=== PATIENT | female | born 1945 | race Caucasian/White ===

== ENCOUNTER 2020-06-24 19:54 | Emergency (ER) | payer MEDICARE, OTHER ==
[2020-06-24 21:54] LABS: BASOPHIL 0 % (0-2); EOSINOPHIL 0 % (0-7); HCT 28.5 % (37.0-47.0); HGB 9.4 g/dl (12.5-16.0); LYMPHOCYTE 5.2 % (15-48); MCH 30.1 pg (25.0-31.0); MCV 91.3 fL (78.0-100.0); MONOCYTE 0.5 % (0-12); MPV 9.8 fL (6.0-9.5); NEUTROPHIL 93.7 % (41-80); NRBC 0; PLT 130 K/uL (150-400); RBC 3.12 M/uL (4.20-5.40); RDW 19.9 % (11.5-14.0)
[2020-06-24 21:55] LABS: WBC 8.3 K/uL (4.0-10.5)
[2020-06-24 22:08] LABS: ALBUMIN 2.8 g/dL (3.4-5.0); BILIRUBIN - TOTAL 0.8 mg/dL (0.2-1.0); BUN/CREAT RATIO (CALC) 31.6 RATIO; CREATININE 0.57 mg/dL (0.51-0.95); GLOBULIN (CALCULATION) 3.7 g/dL; POTASSIUM 4.1 mmol/L (3.5-5.1); TOTAL PROTEIN 6.5 g/dL (6.4-8.2)
[2020-06-24 22:19] LABS: INR 1.22 (0.9-1.2); PROTHROMBIN TIME 14.6 SECONDS (11.4-13.6)
[2020-06-24 22:24] LABS: PTT 28.8 SECONDS (22.2-34.7)
[2020-06-25] MEDS ORDERED: PEPCID AC20 MG PO (02:05)
== END 2020-06-25 02:41 | disposition home or self-care (01) ==
LOC: FER 19:54
PROVIDERS: Emergency Medicine
DX: R10.13 Epigastric pain (principal); R11.0 Nausea; I48.91 Unspecified atrial fibrillation; J90 Pleural effusion, not elsewhere classified; I25.2 Old myocardial infarction; I11.0 Hypertensive heart disease with heart failure; I50.9 Heart failure, unspecified; Z95.0 Presence of cardiac pacemaker; Z88.1 Allergy status to other antibiotic agents; Z88.5 Allergy status to narcotic agent; Z88.8 Allergy status to other drugs, medicaments and biological substances; Z91.041 Radiographic dye allergy status; Z79.82 Long term (current) use of aspirin; Z79.899 Other long term (current) drug therapy; Z79.01 Long term (current) use of anticoagulants
CPT/HCPCS: 36415; 71045; 80053; 84484; 85025; 85610; 85730; 93005; J0780; J1200

== ENCOUNTER 2020-08-19 12:29 | Inpatient (IN) | payer MEDICARE, OTHER ==
[~2020-08-19] VITALS: Ht 149.9 cm; Wt 37.8 kg
[~2020-08-19 12:29] MED LIST: PEPCID AC20 MG PO
[2020-08-19 13:12] LABS: BASOPHIL 0.3 % (0-2); EOSINOPHIL 0 % (0-7); HCT 24.6 % (37.0-47.0); HGB 7.9 g/dl (12.5-16.0); MCH 32.4 pg (25.0-31.0); MCHC 32.1 g/dL (32.0-36.0); MCV 100.8 fL (78.0-100.0); MONOCYTE 3.2 % (0-12); MPV 9.6 fL (6.0-9.5); NEUTROPHIL 76.2 % (41-80); NRBC 0; PLT 93 K/uL (150-400); RBC 2.44 M/uL (4.20-5.40); RDW 17.4 % (11.5-14.0)
[2020-08-19 13:20] LABS: WBC 3.7 K/uL (4.0-10.5)
[2020-08-19 13:22] LABS: LACTIC ACID 1.8 mmol/L (0.4-1.9); PRO-BNP 4485 pg/mL (<125)
[2020-08-19 14:14] LABS: ALBUMIN 2.5 g/dL (3.4-5.0); BILIRUBIN - TOTAL 1.1 mg/dL (0.2-1.0); BUN/CREAT RATIO (CALC) 27.2 RATIO; CREATININE 0.81 mg/dL (0.51-0.95); GLOBULIN (CALCULATION) 3.8 g/dL; TOTAL PROTEIN 6.3 g/dL (6.4-8.2)
[2020-08-20 06:01] LABS: BASOPHIL 0 % (0-2); EOSINOPHIL 0 % (0-7); HCT 28.1 % (37.0-47.0); HGB 8.7 g/dl (12.5-16.0); LYMPHOCYTE 19.1 % (15-48); MCH 32.3 pg (25.0-31.0); MCV 104.5 fL (78.0-100.0); MPV 9.6 fL (6.0-9.5); NRBC 0; PLT 84 K/uL (150-400); RBC 2.69 M/uL (4.20-5.40); RDW 17.2 % (11.5-14.0); WBC 2.5 K/uL (4.0-10.5)
[2020-08-20 06:25] LABS: ALBUMIN 2.2 g/dL (3.4-5.0); BILIRUBIN - TOTAL 0.5 mg/dL (0.2-1.0); BUN/CREAT RATIO (CALC) 29.4 RATIO; CREATININE 0.68 mg/dL (0.51-0.95); GLOBULIN (CALCULATION) 4.7 g/dL; POTASSIUM 4.5 mmol/L (3.5-5.1); TOTAL PROTEIN 6.9 g/dL (6.4-8.2)
--- NOTE | 2020-08-20 16:13 | NUR ---
08/20/20 Ms. Ng lives at home with her spouse. Patient is current with [facility] . A referral was made to [facility] to include PT. A referral was made to [facility] to provide a rw. Please call [facility] if patient is discharged over the weekend, .
[2020-08-21 04:16] LABS: BASOPHIL 0 % (0-2); EOSINOPHIL 0 % (0-7); HCT 21.9 % (37.0-47.0); HGB 6.8 g/dl (12.5-16.0); LYMPHOCYTE 12.9 % (15-48); MCH 31.8 pg (25.0-31.0); MCHC 31.1 g/dL (32.0-36.0); MCV 102.3 fL (78.0-100.0); MONOCYTE 5.8 % (0-12); MPV 10.1 fL (6.0-9.5); NRBC 0; RBC 2.14 M/uL (4.20-5.40); WBC 3.8 K/uL (4.0-10.5)
[2020-08-21 04:26] LABS: NEUTROPHIL 78.1 % (41-80); PLT 58 K/uL (150-400)
[2020-08-21 04:41] LABS: CREATININE 0.69 mg/dL (0.51-0.95); POTASSIUM 4.4 mmol/L (3.5-5.1)
--- NOTE | 2020-08-21 06:17 | NUR ---
0527 hgb 6.8, hct 21.9, and platelets [address] Antonio
[2020-08-22 04:06] LABS: BASOPHIL 0 % (0-2); EOSINOPHIL 0 % (0-7); HCT 25.1 % (37.0-47.0); HGB 8.5 g/dl (12.5-16.0); LYMPHOCYTE 24.9 % (15-48); MCH 32.9 pg (25.0-31.0); MCHC 33.9 g/dL (32.0-36.0); MONOCYTE 8.7 % (0-12); MPV 10.7 fL (6.0-9.5); NRBC 0; RBC 2.58 M/uL (4.20-5.40); WBC 4.6 K/uL (4.0-10.5)
[2020-08-22 04:08] LABS: MCV 97.3 fL (78.0-100.0); NEUTROPHIL 64.4 % (41-80); PLT 42 K/uL (150-400)
[2020-08-22 04:26] LABS: BUN/CREAT RATIO (CALC) 24.6 RATIO; CREATININE 0.65 mg/dL (0.51-0.95); POTASSIUM 4.2 mmol/L (3.5-5.1)
[2020-08-24 05:47] LABS: HCT 25.2 % (37.0-47.0); HGB 8.3 g/dl (12.5-16.0); MCH 32.7 pg (25.0-31.0); MCHC 32.9 g/dL (32.0-36.0); MCV 99.2 fL (78.0-100.0); RBC 2.54 M/uL (4.20-5.40); RDW 16.9 % (11.5-14.0); WBC 4.3 K/uL (4.0-10.5)
[2020-08-24 07:51] LABS: CREATININE 0.74 mg/dL (0.51-0.95); POTASSIUM 3.5 mmol/L (3.5-5.1)
[2020-08-25 05:42] LABS: HCT 24.6 % (37.0-47.0); HGB 8.2 g/dl (12.5-16.0); MCH 32.9 pg (25.0-31.0); MCHC 33.3 g/dL (32.0-36.0); MCV 98.8 fL (78.0-100.0); MPV 11.6 fL (6.0-9.5); RBC 2.49 M/uL (4.20-5.40); RDW 16.8 % (11.5-14.0); WBC 4.1 K/uL (4.0-10.5)
[2020-08-25 06:09] LABS: BUN/CREAT RATIO (CALC) 9.2 RATIO; CREATININE 0.65 mg/dL (0.51-0.95); POTASSIUM 3.7 mmol/L (3.5-5.1)
--- NOTE | 2020-08-25 10:40 | NUR ---
08/25/20 IV infusion has been arranged by [facility] through [facility]. The infusion will start on 08/26/20. Ms. Ng has been made aware of her cost. She has agreed to pay the $398.78 co-pay. - A report was given to MS SHEREEN Hayes.
[2020-08-25] MEDS ORDERED: LOPRESSOR25 MG PO (11:13)
[2020-08-25] MEDS ORDERED: SYNTHROID25 MCG PO (11:13)
[2020-08-25] MEDS ORDERED: XARELTO15 MG PO (11:13)
[2020-08-25] MEDS ORDERED: CARDIZEM30 MG PO (11:13)
== END 2020-08-25 13:15 | disposition home health service (06) | DRG 871 ==
LOC: FER 12:29 → FMS 17:19
PROVIDERS: Hospitalist; Internal Medicine; ADMIT Allergy & Immunology Allergy
PROC: 30233N1 Transfusion of Nonautologous Red Blood Cells into Peripheral Vein, Percutaneous Approach (ICD-10-PCS; principal; 2020-08-21)
DX: A40.8 Other streptococcal sepsis (principal); J18.9 Pneumonia, unspecified organism; D61.810 Antineoplastic chemotherapy induced pancytopenia; D84.9 Immunodeficiency, unspecified; J90 Pleural effusion, not elsewhere classified; C34.90 Malignant neoplasm of unspecified part of unspecified bronchus or lung; D68.9 Coagulation defect, unspecified; T45.1X5A Adverse effect of antineoplastic and immunosuppressive drugs, initial encounter; E11.9 Type 2 diabetes mellitus without complications; I48.91 Unspecified atrial fibrillation; Z66 Do not resuscitate; Z20.822 Contact with and (suspected) exposure to COVID-19; E78.00 Pure hypercholesterolemia, unspecified; J45.909 Unspecified asthma, uncomplicated; E55.9 Vitamin D deficiency, unspecified; I95.9 Hypotension, unspecified; Z98.890 Other specified postprocedural states; Z95.5 Presence of coronary angioplasty implant and graft; Z90.49 Acquired absence of other specified parts of digestive tract; Z88.5 Allergy status to narcotic agent; Z88.1 Allergy status to other antibiotic agents; Z91.041 Radiographic dye allergy status; Z88.8 Allergy status to other drugs, medicaments and biological substances; Z95.810 Presence of automatic (implantable) cardiac defibrillator; I25.2 Old myocardial infarction
CPT/HCPCS: 36415; 36430; 71045; 71250; 80048; 80053; 80202; 83605; 83880; 84145; 84484; 85025; 85379; 86850; 86900; 86901; 86922; 87040; 87077; 87186; 93005; 97162; 97166; 97530-GP; 97535; J2543; J2930; J3370; J3475; J7030; J7050; J7120; P9016; P9035; U0002

== ENCOUNTER → 2021-04-27 | Day surgery (SDC) | payer MEDICARE, OTHER ==
[~2021-04-27] VITALS: Ht 149.9 cm; Wt 34.2 kg
[~2021-04-27] MED LIST changes: +AMIODARONE HCL200 MG PO; +AMLODIPINE BES2.5 MG PO; +ASPIRIN EC81 MG PO; +CARDIZEM30 MG PO; +CRESTOR20 MG PO; +ELIQUIS5 MG PO; +FOLIC ACID PO; +IRON PO; +LASIX20 MG PO; +LOPRESSOR25 MG PO; +ONDANSETRON ODT4 MG PO; +PANTOPRAZOLE PO; +POTASSIUM PO; +SINGULAIR10 MG PO; +SYNTHROID25 MCG PO; +TRANSDERM-SCOP1 EACH TD; +ULTRAM50 MG PO; +VIT C PO; +VIT D PO; +XARELTO15 MG PO; +ZINC50 M2 PO
[2021-04-27 11:00] LABS: INR 1.16 (0.9-1.2); PROTHROMBIN TIME 14.2 SECONDS (11.8-13.4)
[2021-04-27 11:01] LABS: PTT 31.5 SECONDS (24.4-34.7)
== END | disposition home or self-care (01) ==
LOC: FAS 08:56
PROVIDERS: Student in an Organized Health Care Education/Training Program
DX: C34.92 Malignant neoplasm of unspecified part of left bronchus or lung (principal); J91.0 Malignant pleural effusion; I10 Essential (primary) hypertension; I25.2 Old myocardial infarction; J45.909 Unspecified asthma, uncomplicated; E03.9 Hypothyroidism, unspecified; Z95.0 Presence of cardiac pacemaker; Z95.5 Presence of coronary angioplasty implant and graft; Z88.5 Allergy status to narcotic agent; Z88.1 Allergy status to other antibiotic agents; Z88.8 Allergy status to other drugs, medicaments and biological substances; Z79.01 Long term (current) use of anticoagulants; Z79.82 Long term (current) use of aspirin; Z79.899 Other long term (current) drug therapy; Z90.49 Acquired absence of other specified parts of digestive tract; Z82.49 Family history of ischemic heart disease and other diseases of the circulatory system
CPT/HCPCS: 36415; 71045; 76000; 85610; 85730; C1788; J0690; J1644; J2250; J2405; J2704; J3010; J7120

== ENCOUNTER 2021-06-29 14:20 | Inpatient (IN) | payer MEDICARE, OTHER ==
[~2021-06-29] VITALS: Ht 149.9 cm; Wt 32.3 kg
[2021-06-29 15:25] LABS: FT4 (FREE T4) 1.7 ng/dL (0.76-1.46); MAGNESIUM 1.5 mg/dL (1.8-2.4)
[2021-06-29 15:43] LABS: CORONAVIRUS 2019 SARS-COV-2 NEGATIVE (NEGATIVE); INFLUENZA A NAA NEGATIVE (NEGATIVE)
[2021-06-29 15:51] LABS: INR 1.64 (0.9-1.2); PROTHROMBIN TIME 18.7 SECONDS (11.8-13.4); PTT 36.5 SECONDS (24.4-34.7)
[2021-06-29 16:16] LABS: LACTIC ACID 4.3 mmol/L (0.4-1.9)
[2021-06-30 06:28] LABS: BASOPHIL 0.1 % (0-2); EOSINOPHIL 0 % (0-7); HCT 28.6 % (37.0-47.0); HGB 9.2 g/dl (12.5-16.0); LYMPHOCYTE 1.8 % (15-48); MCHC 32.2 g/dL (32.0-36.0); MCV 102.5 fL (78.0-100.0); MONOCYTE 3.3 % (0-12); MPV 10.9 fL (6.0-9.5); NEUTROPHIL 93.9 % (41-80); NRBC 0; RBC 2.79 M/uL (4.20-5.40); RDW 18.1 % (11.5-14.0)
[2021-06-30 07:06] LABS: BUN 22 mg/dL (7-18); BUN/CREAT RATIO (CALC) 26.2 RATIO; CHLORIDE 105 mmol/L (98-107); CHOLESTEROL 115 mg/dL (<200); CO2 (BICARBONATE) 24 mmol/L (21-32); CREATININE 0.84 mg/dL (0.51-0.95); GLUCOSE 132 mg/dL (74-106); HDL 16 mg/dL (40-60); LDL - DIRECT 63 mg/dL (<100); MAGNESIUM 1.5 mg/dL (1.8-2.4); TRIGLYCERIDES 135 mg/dL (<150)
[2021-06-30 07:43] LABS: C-REACTIVE PROTEIN > 18.00 mg/dL (<=0.90)
[2021-06-30 07:54] LABS: WBC 13.7 K/uL (4.0-10.5)
[2021-06-30 08:01] LABS: PLT 96 K/uL (150-400)
[2021-06-30 18:24] LABS: BILIRUBIN NEGATIVE (NEGATIVE); BLOOD 3+ Ery/uL (NEGATIVE); COLOR YELLOW (YELLOW); GLUCOSE (U) NORMAL (NORMAL); LEUKOCYTES NEGATIVE Leu/uL (NEGATIVE); NITRITE NEGATIVE (NEGATIVE); PROTEIN TRACE (LOW) mg/dL (NEGATIVE); SPECIFIC GRAVITY >=1.030 (1.001-1.030); UROBILINOGEN 0.2 mg/dL (0.2-1.0); pH 5.5 (5.0-9.0)
[2021-06-30 18:41] LABS: CLARITY SLIGHTLY HAZY (CLEAR)
[2021-06-30 18:45] LABS: URINARY RBC 20-50
[2021-06-30 18:47] LABS: BACTERIA 2+; MUCOUS TRACE; URIC ACID CRYSTALS MODERATE
[2021-07-01 06:04] LABS: BASOPHIL 0.1 % (0-2); EOSINOPHIL 0 % (0-7); HCT 30.7 % (37.0-47.0); HGB 9.9 g/dl (12.5-16.0); LYMPHOCYTE 1.2 % (15-48); MCH 33.6 pg (25.0-31.0); MCHC 32.2 g/dL (32.0-36.0); MCV 104.1 fL (78.0-100.0); MONOCYTE 2.8 % (0-12); MPV 10.3 fL (6.0-9.5); NRBC 0; PLT 102 K/uL (150-400); RBC 2.95 M/uL (4.20-5.40); RDW 18.4 % (11.5-14.0); WBC 15.2 K/uL (4.0-10.5)
[2021-07-01 06:09] LABS: NEUTROPHIL 94.8 % (41-80)
[2021-07-01 06:15] LABS: BUN/CREAT RATIO (CALC) 25.6 RATIO; CREATININE 0.82 mg/dL (0.51-0.95); POTASSIUM 3.6 mmol/L (3.5-5.1)
[2021-07-02 06:22] LABS: BASOPHIL 0.1 % (0-2); EOSINOPHIL 0.1 % (0-7); HCT 32.1 % (37.0-47.0); HGB 10.2 g/dl (12.5-16.0); LYMPHOCYTE 1.5 % (15-48); MCH 33.2 pg (25.0-31.0); MCHC 31.8 g/dL (32.0-36.0); MCV 104.6 fL (78.0-100.0); MONOCYTE 2.1 % (0-12); MPV 10.6 fL (6.0-9.5); NRBC 0; PLT 106 K/uL (150-400); RBC 3.07 M/uL (4.20-5.40); RDW 18.2 % (11.5-14.0); WBC 14.6 K/uL (4.0-10.5)
[2021-07-02 06:28] LABS: NEUTROPHIL 95.7 % (41-80)
[2021-07-02 06:44] LABS: BUN/CREAT RATIO (CALC) 27.3 RATIO; CREATININE 0.77 mg/dL (0.51-0.95); POTASSIUM 3.2 mmol/L (3.5-5.1)
[2021-07-03 06:36] LABS: BUN/CREAT RATIO (CALC) 22.8 RATIO; CREATININE 0.79 mg/dL (0.51-0.95); POTASSIUM 3.3 mmol/L (3.5-5.1)
[2021-07-04 05:54] LABS: BASOPHIL 0.1 % (0-2); EOSINOPHIL 0 % (0-7); HCT 31.5 % (37.0-47.0); HGB 9.9 g/dl (12.5-16.0); LYMPHOCYTE 1.4 % (15-48); MCH 32.2 pg (25.0-31.0); MCHC 31.4 g/dL (32.0-36.0); MCV 102.6 fL (78.0-100.0); MONOCYTE 0.9 % (0-12); MPV 10.8 fL (6.0-9.5); NRBC 0; PLT 125 K/uL (150-400); RBC 3.07 M/uL (4.20-5.40)
[2021-07-04 06:00] LABS: WBC 14.1 K/uL (4.0-10.5)
[2021-07-04 06:16] LABS: BUN/CREAT RATIO (CALC) 23.5 RATIO; CREATININE 0.81 mg/dL (0.51-0.95); MAGNESIUM 1.5 mg/dL (1.8-2.4); POTASSIUM 3.7 mmol/L (3.5-5.1)
[2021-07-05 03:39] LABS: BASOPHIL 0.1 % (0-2); EOSINOPHIL 0 % (0-7); HCT 33.2 % (37.0-47.0); HGB 10.5 g/dl (12.5-16.0); LYMPHOCYTE 1.3 % (15-48); MCH 32.3 pg (25.0-31.0); MCHC 31.6 g/dL (32.0-36.0); MCV 102.2 fL (78.0-100.0); MONOCYTE 1.8 % (0-12); MPV 9.5 fL (6.0-9.5); NRBC 0; PLT 132 K/uL (150-400); RBC 3.25 M/uL (4.20-5.40); RDW 17.6 % (11.5-14.0); WBC 13.7 K/uL (4.0-10.5)
[2021-07-05 03:41] LABS: NEUTROPHIL 95.8 % (41-80)
[2021-07-05 03:57] LABS: BUN/CREAT RATIO (CALC) 27.5 RATIO; CREATININE 0.69 mg/dL (0.51-0.95); MAGNESIUM 1.8 mg/dL (1.8-2.4); POTASSIUM 3.6 mmol/L (3.5-5.1)
[2021-07-06 03:51] LABS: BASOPHIL 0.2 % (0-2); EOSINOPHIL 0 % (0-7); HCT 33.1 % (37.0-47.0); HGB 10.5 g/dl (12.5-16.0); MCHC 31.7 g/dL (32.0-36.0); MCV 100.9 fL (78.0-100.0); MONOCYTE 3.6 % (0-12); MPV 10.6 fL (6.0-9.5); NEUTROPHIL 93.2 % (41-80); NRBC 0; PLT 153 K/uL (150-400); RBC 3.28 M/uL (4.20-5.40); RDW 17.9 % (11.5-14.0); WBC 15.1 K/uL (4.0-10.5)
[2021-07-06 04:17] LABS: ALBUMIN 1.8 g/dL (3.4-5.0); BILIRUBIN - TOTAL 0.3 mg/dL (0.2-1.0); BUN/CREAT RATIO (CALC) 31.6 RATIO; CREATININE 0.79 mg/dL (0.51-0.95); GLOBULIN (CALCULATION) 3.3 g/dL; MAGNESIUM 2.1 mg/dL (1.8-2.4); PHOSPHORUS 2.1 mg/dL (2.6-4.7); POTASSIUM 4.1 mmol/L (3.5-5.1); TOTAL PROTEIN 5.1 g/dL (6.4-8.2)
[2021-07-07 05:28] LABS: BASOPHIL 0.3 % (0-2); EOSINOPHIL 0 % (0-7); HCT 37.6 % (37.0-47.0); HGB 12.1 g/dl (12.5-16.0); LYMPHOCYTE 3.6 % (15-48); MCH 32.4 pg (25.0-31.0); MCHC 32.2 g/dL (32.0-36.0); MCV 100.8 fL (78.0-100.0); MPV 10.4 fL (6.0-9.5); NEUTROPHIL 90.8 % (41-80); NRBC 0.2; PLT 206 K/uL (150-400); RBC 3.73 M/uL (4.20-5.40); RDW 17.6 % (11.5-14.0)
[2021-07-07 05:29] LABS: WBC 20.5 K/uL (4.0-10.5)
[2021-07-07 06:17] LABS: BUN/CREAT RATIO (CALC) 27.6 RATIO; CREATININE 0.87 mg/dL (0.51-0.95); PHOSPHORUS 3.6 mg/dL (2.6-4.7); POTASSIUM 4.3 mmol/L (3.5-5.1)
[2021-07-10 06:16] LABS: BASOPHIL 0.2 % (0-2); EOSINOPHIL 0 % (0-7); HCT 40.7 % (37.0-47.0); LYMPHOCYTE 2.7 % (15-48); MCH 32.7 pg (25.0-31.0); MCHC 31.9 g/dL (32.0-36.0); MCV 102.5 fL (78.0-100.0); MONOCYTE 2.5 % (0-12); MPV 10.9 fL (6.0-9.5); NEUTROPHIL 93.4 % (41-80); NRBC 0.2; PLT 124 K/uL (150-400); RBC 3.97 M/uL (4.20-5.40); RDW 18.3 % (11.5-14.0); WBC 23.8 K/uL (4.0-10.5)
[2021-07-10 06:39] LABS: CREATININE 1.37 mg/dL (0.51-0.95); POTASSIUM 4.1 mmol/L (3.5-5.1)
[2021-07-10 06:56] LABS: MAGNESIUM 2.7 mg/dL (1.8-2.4)
[2021-07-11 07:08] LABS: BUN/CREAT RATIO (CALC) 56.6 RATIO; CREATININE 1.06 mg/dL (0.51-0.95); POTASSIUM 3.8 mmol/L (3.5-5.1)
[2021-07-11 07:31] LABS: BASOPHIL 0.1 % (0-2); EOSINOPHIL 0.1 % (0-7); HCT 39.2 % (37.0-47.0); HGB 12.4 g/dl (12.5-16.0); LYMPHOCYTE 3.1 % (15-48); MCH 32.5 pg (25.0-31.0); MCHC 31.6 g/dL (32.0-36.0); MCV 102.9 fL (78.0-100.0); MONOCYTE 3.3 % (0-12); MPV 11.9 fL (6.0-9.5); NRBC 0.2; PLT 112 K/uL (150-400); RBC 3.81 M/uL (4.20-5.40); RDW 18.2 % (11.5-14.0); WBC 21.1 K/uL (4.0-10.5)
[2021-07-11 07:37] LABS: NEUTROPHIL 92.5 % (41-80)
[2021-07-11 15:20] LABS: C-REACTIVE PROTEIN 1.8 mg/dL (<=0.90)
[2021-07-12 06:13] LABS: BASOPHIL 0.2 % (0-2); EOSINOPHIL 0.2 % (0-7); HCT 36.8 % (37.0-47.0); HGB 11.7 g/dl (12.5-16.0); LYMPHOCYTE 3.8 % (15-48); MCH 32.7 pg (25.0-31.0); MCHC 31.8 g/dL (32.0-36.0); MCV 102.8 fL (78.0-100.0); MPV 11.7 fL (6.0-9.5); NEUTROPHIL 90.7 % (41-80); NRBC 0.4; RBC 3.58 M/uL (4.20-5.40); WBC 18.6 K/uL (4.0-10.5)
[2021-07-12 06:23] LABS: PLT 89 K/uL (150-400)
[2021-07-12 06:42] LABS: ALBUMIN 1.9 g/dL (3.4-5.0); BILIRUBIN - TOTAL 0.8 mg/dL (0.2-1.0); C-REACTIVE PROTEIN 1.3 mg/dL (<=0.90); CREATININE 0.83 mg/dL (0.51-0.95); GLOBULIN (CALCULATION) 2.5 g/dL; MAGNESIUM 2.2 mg/dL (1.8-2.4); PHOSPHORUS 1.7 mg/dL (2.6-4.7); TOTAL PROTEIN 4.4 g/dL (6.4-8.2)
[2021-07-12 06:47] LABS: POTASSIUM 5.3 mmol/L (3.5-5.1)
[2021-07-12 07:08] LABS: BAND 0 % (0-10); LYMPHOCYTE(M) 6 % (15-48); MONOCYTE(M) 3 % (0-12); NEUTROPHILS(M) 91 % (41-80); PLATELET ESTIMATE DECREASED; PLATELET MORPHOLOGY NORMAL
[2021-07-13 01:38] LABS: ALBUMIN 1.8 g/dL (3.4-5.0); BILIRUBIN - TOTAL 0.5 mg/dL (0.2-1.0); BUN/CREAT RATIO (CALC) 47.7 RATIO; CREATININE 0.65 mg/dL (0.51-0.95); GLOBULIN (CALCULATION) 2.6 g/dL; PHOSPHORUS 2.2 mg/dL (2.6-4.7); POTASSIUM 4.9 mmol/L (3.5-5.1); TOTAL PROTEIN 4.4 g/dL (6.4-8.2)
[2021-07-13 04:24] LABS: BASOPHIL 0.2 % (0-2); EOSINOPHIL 0.4 % (0-7); HCT 37.7 % (37.0-47.0); LYMPHOCYTE 4.5 % (15-48); MCH 32.4 pg (25.0-31.0); MCHC 31.8 g/dL (32.0-36.0); MCV 101.9 fL (78.0-100.0); MONOCYTE 5.3 % (0-12); MPV 11.1 fL (6.0-9.5); NEUTROPHIL 88.8 % (41-80); NRBC 0.3; PLT 68 K/uL (150-400); RDW 17.6 % (11.5-14.0); WBC 17.8 K/uL (4.0-10.5)
[2021-07-13 04:36] LABS: BUN/CREAT RATIO (CALC) 44.6 RATIO; CREATININE 0.65 mg/dL (0.51-0.95)
[2021-07-13 14:45] LABS: BILIRUBIN NEGATIVE (NEGATIVE); BLOOD 2+ Ery/uL (NEGATIVE); CLARITY CLEAR (CLEAR); COLOR YELLOW (YELLOW); GLUCOSE (U) NORMAL (NORMAL); LEUKOCYTES TRACE Leu/uL (NEGATIVE); NITRITE NEGATIVE (NEGATIVE); PROTEIN 2+ mg/dL (NEGATIVE); UROBILINOGEN 0.2 mg/dL (0.2-1.0)
[2021-07-13 14:55] LABS: URINARY WBC 20-50
[2021-07-13 14:56] LABS: YEAST PRESENT
[2021-07-13 14:57] LABS: MUCOUS TRACE; SQUAMOUS EPITHELIAL CELLS RARE
[2021-07-13 14:58] LABS: BACTERIA TRACE
== END 2021-07-14 10:48 | disposition expired | DRG 871 ==
LOC: FER 14:20 → FTCU 18:02 → FICU 07-09 22:12
PROVIDERS: Emergency Medicine; Internal Medicine; Internal Medicine Cardiovascular Disease; Nurse Practitioner; ADMIT Internal Medicine
PROC: 0T9B70Z Drainage of Bladder with Drainage Device, Via Natural or Artificial Opening (ICD-10-PCS; 2021-06-29)
PROC: 3E03329 Introduction of Other Anti-infective into Peripheral Vein, Percutaneous Approach (ICD-10-PCS; principal; 2021-06-30)
PROC: B24BZZ4 Ultrasonography of Heart with Aorta, Transesophageal (ICD-10-PCS; 2021-07-01)
PROC: 3E033XZ Introduction of Vasopressor into Peripheral Vein, Percutaneous Approach (ICD-10-PCS; 2021-07-09)
PROC: 0DH67UZ Insertion of Feeding Device into Stomach, Via Natural or Artificial Opening (ICD-10-PCS; 2021-07-11)
PROC: 3E0G76Z Introduction of Nutritional Substance into Upper GI, Via Natural or Artificial Opening (ICD-10-PCS; 2021-07-11)
DX: A41.9 Sepsis, unspecified organism (principal); J96.01 Acute respiratory failure with hypoxia; I50.33 Acute on chronic diastolic (congestive) heart failure; J18.9 Pneumonia, unspecified organism; J96.02 Acute respiratory failure with hypercapnia; G93.41 Metabolic encephalopathy; E43 Unspecified severe protein-calorie malnutrition; R65.21 Severe sepsis with septic shock; C34.12 Malignant neoplasm of upper lobe, left bronchus or lung; I13.0 Hypertensive heart and chronic kidney disease with heart failure and stage 1 through stage 4 chronic kidney disease, or unspecified chronic kidney disease; N13.30 Unspecified hydronephrosis; I48.21 Permanent atrial fibrillation; B37.0 Candidal stomatitis; Z68.1 Body mass index [BMI] 19.9 or less, adult; C79.9 Secondary malignant neoplasm of unspecified site; Z51.5 Encounter for palliative care; Z66 Do not resuscitate; Z20.822 Contact with and (suspected) exposure to COVID-19; E78.5 Hyperlipidemia, unspecified; E11.22 Type 2 diabetes mellitus with diabetic chronic kidney disease; N18.30 Chronic kidney disease, stage 3 unspecified; I45.10 Unspecified right bundle-branch block; Y95 Nosocomial condition; I25.5 Ischemic cardiomyopathy; R62.7 Adult failure to thrive; L89.156 Pressure-induced deep tissue damage of sacral region; J45.909 Unspecified asthma, uncomplicated; I34.0 Nonrheumatic mitral (valve) insufficiency; E87.6 Hypokalemia; E11.65 Type 2 diabetes mellitus with hyperglycemia; R13.10 Dysphagia, unspecified; R45.1 Restlessness and agitation; I25.2 Old myocardial infarction; Z95.810 Presence of automatic (implantable) cardiac defibrillator; Z95.5 Presence of coronary angioplasty implant and graft; Z90.49 Acquired absence of other specified parts of digestive tract; Z98.890 Other specified postprocedural states; Z82.49 Family history of ischemic heart disease and other diseases of the circulatory system; Z88.1 Allergy status to other antibiotic agents; Z88.5 Allergy status to narcotic agent; Z88.8 Allergy status to other drugs, medicaments and biological substances; Z79.01 Long term (current) use of anticoagulants; Z79.899 Other long term (current) drug therapy
CPT/HCPCS: 36415; 36600; 71045; 71250; 80048; 80053; 80061; 80202; 81001; 82728; 82803; 82962; 83605; 83735; 83880; 84100; 84145; 84439; 84443; 84484; 85025; 85610; 85730; 86140; 87040; 87088; 93005; 94640; 94667; 94668; 97162; 97166; J1160; J1170; J1885; J1940; J2020; J2060; J2185; J2405; J2543; J2920; J3370; J3475; J7030; J7050; J8540; U0002